=== PATIENT | female | born 1995 | race African-American/Black ===

== ENCOUNTER 2017-12-21 16:29 | Emergency (ER) | payer MEDICAID ==
[~2017-12-21] VITALS: Ht 162.6 cm; Wt 50.8 kg
[2017-12-21 16:35] VITALS: BP 136/87
== END 2017-12-21 19:15 | disposition left against medical advice (07) ==
LOC: ER 16:38
DX: M79.89 Other specified soft tissue disorders (principal); Z53.21 Procedure and treatment not carried out due to patient leaving prior to being seen by health care provider